=== PATIENT | female | born 1945 | race African-American/Black ===

== ENCOUNTER 2019-11-30 07:55 | Day surgery (SDC) | payer OTHER ==
--- NOTE | 2019-11-29 13:43 | Pre-Procedure Note/Attestation ---
Pre-Procedure Note/Attestation Complete Prior to Procedure Planned Procedure: right Procedure Narrative: right knee scope, medial and lateral meniscectomy and chondroplasty Indications for Procedure Pre-Operative Diagnosis: rt knee medial and lateral meniscus tears Attestation I attest that I discussed the nature of the procedure; its benefits; risks and complications; and alternatives (and the risks and benefits of such alternatives ), prior to the procedure, with the patient (or the patient's legal lifeline representatives). I attest that, if there was a reasonable possibility of needing a blood transfusion, the patient (or the patient's legal lifeline representatives) was given the [facility] standardized written summary, pursuant to the [place] Blood Safety Act ([place] Health and Safety Code # 1645, as amended). I attest that I re-evaluated the patient just prior to the surgery and that there has been no change in the patient's H&P, except as documented below: NONE Willi Monterroso MD Nov 29, 2019 13:43
[2019-11-30] VITALS (11 sets, daily range): BP systolic 119–141; BP diastolic 68–84
[~2019-11-30] VITALS: Ht 160 cm; Wt 86.2 kg
[~2019-11-30 07:55] MED LIST: D5 1/2NS 1,000 ML IV SCH; DIOVAN80 MG ORAL; FELODIPINE ER5 MG PO; HYDROcodone/Acetamin 5/325 tab ORAL PRN; HYDROmorphone 1mg/ml Carpuject SUBQ PRN; PRAVASTATIN SOD20 M1 ORAL; Tylenol #3 tab (300mg/30mg) ORAL PRN; ceFAZolin 1gm IVPB IVPB ONE; celeBREX 200mg Cap **SURGERY PATIENTS ONLY ORAL ONE; oxyCONTIN 10mg tab ORAL ONE
[2019-11-30] MEDS ORDERED: oxyCONTIN 10mg tab ORAL ONE (08:24)
[2019-11-30] MEDS ORDERED: celeBREX 200mg Cap **SURGERY PATIENTS ONLY ORAL ONE (08:24)
[2019-11-30] MEDS ORDERED: Ropivacaine 5mg/ml Vial 20ml INJ ONE (08:25)
[2019-11-30] MEDS ORDERED: LR 1000ml 1,000 ML IVLG SCH (08:38)
--- NOTE | 2019-11-30 08:38 | Anethesia Preoperative Eval ---
Anesthesia Pre-op PMH/ROS General Date of Evaluation: Nov 30, 2019 Anesthesiologist: Jean ASA Score: ASA 2 Mallampati Score Class I : Soft palate, uvula, fauces, pillars visible Class II: Soft palate, uvula, fauces visible Class III: Soft palate, base of uvula visible Class IV: Only hard plate visible Mallampati Classification: Class II Surgeon: Loc Diagnosis: Right knee OA Surgical Procedure: Right knee arthroscopy Anesthesia History: none Family History: no anesthesia problems Allergies: Coded Allergies: No Known Allergies (Unverified , 11/29/19) Medications: see eMAR Patient NPO?: Yes NPO Date: Nov 30, 2019 NPO Time: 00:00 Past Medical History Cardiovascular: Reports: HTN, other - HLD; Denies: CAD, [place], valve dz, arrhythmia Pulmonary: Denies: asthma, COPD, MELLY, other Gastrointestinal/Genitourinary: Denies: GERD, CRI, ESRD, other Neurologic/Psychiatric: Denies: dementia, CVA, depression/anxiety, TIA, other Endocrine: Denies: DM, hypothyroidism, steroids, other HEENT: Denies: cataract (L), cataract (R), glaucoma, [place] (L), [place] (R), other Hematology/Immune: Denies: anemia, DVT, bleeding disorder, other Musculoskeletal/Integumentary: Reports: OA; Denies: RA, DJD, DDD, edema, other Other: obesity PSxH Narrative: Denies Anesthesia Pre-op Phys. Exam Physician Exam Last Vital Signs Date Time Temp Pulse Resp B/P (MAP) Pulse Ox O2 Delivery O2 Flow Rate FiO2 11/30/19 08:26 Room Air 11/30/19 08:16 96.8 83 18 121/84 98 Constitutional: NAD Cardiovascular: RRR Respiratory: CTA Airway Exam Mallampati Score: Class II MO: full ROM: full Anesthesia Pre-op A/P Labs see chart Studies Pre-op Studies: EKG - sr Risk Assessment & Plan Assessment: ASA II Plan: GA Status Change Before Surgery: No Pre-Antibiotics Drug: Ancef 1g Given Within 1 Hr of Incision: Yes Eloisa Pena MD Nov 30, 2019 08:38
[2019-11-30] MEDS ORDERED: Labetalol 5mg/ml 20ml vial IV PRN (08:45)
[2019-11-30] MEDS ORDERED: DiphenhydrAMINE 50mg/ml Inj IVP PRN (08:45)
[2019-11-30] MEDS ORDERED: LORazepam Inj 2mg/ml 1ml IV PRN (08:45)
[2019-11-30] MEDS ORDERED: Hydromorphone 0.5mg/0.5ml inj IVP PRN (08:45)
[2019-11-30] MEDS ORDERED: fentaNYL 100 mcg/2 mL IV PRN (08:45)
[2019-11-30] MEDS ORDERED: Ketorolac 30mg Inj IV PRN (08:45)
[2019-11-30] MEDS ORDERED: Lidocaine 1% MPF 10mg/ml 5ml ONE (08:51)
[2019-11-30] MEDS ORDERED: fentaNYL 100 mcg/2 mL IV ONE (08:51)
[2019-11-30] MEDS ORDERED: Midazolam 2mg/2ml Inj ONE (08:51)
[2019-11-30] MEDS ORDERED: NS Irrig 4000ml IRRIG ONE ×2 (09:00→09:29)
[2019-11-30] MEDS ORDERED: LR 1000ml ONE (09:00)
[2019-11-30] MEDS ORDERED: NS Irrig 2000ml IRRIG ONE ×2 (09:00→09:30)
--- NOTE | 2019-11-30 09:42 | Brief Operative Note ---
Immediate Post Operative Note Operative Note Chief Complaint: rt knee pain Pre-op Diagnosis: rt knee medial and lateral meniscus tears Procedure: rt knee scope, medial and lateral meniscectomy with chondroplasty Post-op Diagnosis: same as pre-op Findings: consistent w/pre-op dx studies Surgeon: md nichol Cokeman: christiano alas Anesthesiologist: md mariaa Anesthesia: general Specimen: none Complications: none Condition: stable Fluids: ns Estimated Blood Loss: minimal Drains: none Implant(s) used?: Willi Ayala MD Nov 30, 2019 09:42
--- NOTE | 2019-11-30 09:51 | Immediate Post-Op Evaluation ---
Immediate Post-Op Evalulation Immediate Post-Op Evalulation Procedure: Right knee arthroscopy Date of Evaluation: Nov 30, 2019 Time of Evaluation: 09:54 IV Fluids: 200 Blood Products: 0 Estimated Blood Loss: min Urinary Output: 0 Blood Pressure Systolic: 119 Blood Pressure Diastolic: 76 Pulse Rate: 80 Respiratory Rate: 16 O2 Sat by Pulse Oximetry: 97 Temperature (Fahrenheit): 97.2 Pain Score (1-10): 0 Nausea: No Vomiting: No Complications 0 Patient Status: awake, reacts, patent, none Hydration Status: adequate Drug: Ancef 2g Given Within 1 Hr of Incision: Yes Eloisa Pena MD Nov 30, 2019 09:51
--- NOTE | 2019-11-30 09:52 | 48 Hour Post Anesthesia Eval ---
Post Anesthesia Evaluation Procedure: Right knee arthroscopy Date of Evaluation: Nov 30, 2019 Airway: patent Nausea: No Vomiting: No Pain Intensity: 0 Hydration Status: adequate Cardiopulmonary Status: at basleine Mental Status/LOC: patient returned to baseline Post-Anesthesia Complications: 0 Follow-up care needed: ready to discharge Eloisa Pena MD Nov 30, 2019 09:52
--- NOTE | 2019-11-30 12:15 | Operative Note - Dictated ---
DATE OF OPERATION: 11/30/2019 PREOPERATIVE DIAGNOSES: 1. Right knee lateral meniscus tearing. 2. Right knee medial meniscus tearing. POSTOPERATIVE DIAGNOSES: 1. 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 2. Right knee complex degenerative tear of the posterior horn and body of the lateral meniscus with horizontal cleavage as well as a vertical variety with displaced fragment involving 35% lateral meniscus. 3. Right knee posterior horn and junction of posterior horn and body medial meniscus tearing with a vertical parrot-beak shaped tear. The vertical component extended to the meniscocapsular junction bisecting the posterior horn from the body and anterior horn of the medial meniscus. PROCEDURE: 1. Right knee arthroscopy and extensive intra-articular shaving. 2. Right knee patellofemoral chondroplasty. 3. Right knee partial lateral meniscectomy involving 35% posterior horn, body of the lateral meniscus. 4. Right knee partial medial meniscectomy involving 25% posterior horn, body of the medial meniscus. SURGEON: Willi Monterroso MD. FRONTEND ENGINEER: Pina Mooney PA-C. Industrial Manufacturing Technician was present during the actual operative portion of the case and was important and essential part of the operation. During the operation, the enrichment assistant held and operated the arthroscopic camera for visualization, assisted by manipulating the leg to help with visualization, and helped with essential parts of the repair process as necessary such as operating surgical instruments under surgeon supervision, suture management, and wound closures. ANESTHESIOLOGIST: Eloisa Pena MD. ANESTHESIA: General LMA anesthesia. TOURNIQUET TIME: 25 minutes. EBL: Minimal. COMPLICATIONS: None. SURGICAL INDICATION: The patient is a 73-year-old female, who sustained the above injury to her knee. The patient was treated non-operative initially, but this did not alleviate the patients symptoms. Therefore, after discussing all non-surgical and surgical options, and discussing all foreseeable risk and benefits of surgery, the patient opted for surgical treatment as described above. PATIENT POSITIONING: The patient was brought to the operating room table and placed supine. All pressure points were well padded. Time-out was performed and preop antibiotics were given. General anesthesia was induced and a well padded tourniquet was placed on the thigh. The lateral post was placed and positioned to allow for opening of the medial compartment of the knee without placing pressure over the fibular head. The patients entire leg was prepped and draped in the usual sterile fashion. Time out was performed and preoperative antibiotics were given and after exsanguinating the lower extremity, the tourniquet was inflated to 275 mm of mercury. EXAMINATION OF THE KNEE UNDER ANESTHESIA: Before prepping and draping the knee and while the patient was relaxed under general anesthesia, the knee was examined for ROM, and anterior and posterior, medial and lateral, posterolateral, and posteromedial instability. Pivot shift testing was performed. There was no evidence of loss of motion or instability and the pivot shift testing was negative. PORTAL PLACEMENT: The lateral portal was placed with the knee flexed to 90 degrees at the level of inferior border of the patella in line with the lateral border of the patella. A cm skin incision was made with an eleven blade, and using a blunt obturator, the capsule was gently penetrated. Sterile saline solution was then infused inside the knee with the aid of a pump set at 35 mm mercury pressure. Under direct visualization, placement of the medial portal was preliminary judged using a spinal needle, and it was subsequently established using the same technique as the lateral portal. Care was given not to injure the cutaneous branches of the medial saphenous nerve or the subcutaneous veins. DIAGNOSTIC ARTHROSCOPY: The suprapatellar patellar pouch was visualized. There was no evidence of scar tissue or loose fragments. The medial and lateral patellar facets and trochlear groove articular cartilage was visualized. There was evidence of grade 3 chondral damage of the medial and lateral patellar facet. There were some unstable chondral flaps in the trochlea. However, there was area 1.5x1 cm central grade 4 chondromalacia, which was round. The medial plica shelf and the corresponding medial femoral condyle articular cartilage were visualized. There was no significantly thickening of the medial plica shelf and there were no kissing? lesion over the medial femoral condyle. The lateral gutter and the posterolateral corner of the knee were visualized. There were no loose bodies, and the popliteus tendon and other structures of the posterolateral corner of the knee were intact intra-articularly. At this point, the knee was placed in the figure of four position and the lateral compartment was entered. The lateral femoral condyle, lateral tibial plateau, and the anterior, body, and the posterior horn of the lateral meniscus were visualized and probed. The articular surfaces were intact and devoid of articular cartilage damage. There was a complex tear of the posterior horn, body lateral meniscus involving a horizontal cleavage tear as well as a vertical tear. There were displaced fragments of the body and posterior horn of the lateral meniscus. This involved 30% to 35% posterior horn and body of lateral meniscus. The knee was then placed at 90 degree and the ACL and PCL were visualized and probed. The ACL was completely intact on visualization and probing, and it had excellent tension. The PCL was completely intact on visualization and probing and it had excellent tension. The medial compartment was then entered and the medial femoral condyle, medial tibial plateau, and the anterior, body, and the posterior horn of the medial meniscus were visualized and probed. The articular surfaces were intact and devoid of articular cartilage damage. There was a vertical parrot-beak tear of the posterior horn and junction of posterior horn, body of the medial meniscus. The vertical tear extended to the meniscocapsular junction and bisected the posterior horn from the body of the medial meniscus. There was a displaced and unstable fragment to that. The medial gutter was visualized. There was no evidence of defect or loose fragments. The scope was then brought back to the patella femoral compartment. OPERATIVE ARTHROSCOPY: At this point, all loose debris and fragments were removed with the use of suction motorized shaver. Specific attention was given to assure all visible loose fragments were irrigated out of the knee joint with pump inflow and cannula outflow system. The frayed articular cartilage of the undersurface of the patella and the trochlear groove were debrided using a motorized shaver. Suction was used to pull in the loose fragments and flaps of the cartilage and to minimize damage to the intact and well attached portion of the cartilage. This allowed for a smooth surface for the articular cartilage gliding. At this point, attention was given to the lateral meniscus. Using combination of baskets and navya, the torn portion of the lateral meniscus was removed. Attention was given to remove all displaced and unstable portion of the lateral meniscus while maintaining as much of the functional portion of the meniscus as possible. Approximately, 30% to 35% of the posterior horn and body of the meniscus was removed in this fashion. The transition between the meniscectomy portion and intact portion of the meniscus was smoothed out with combination of small baskets and navya. Excellent transition zone was obtained in this fashion. At this point, attention was given to the medial meniscus. Using combination of baskets and navya, the torn portion of the medial meniscus was removed. Attention was given to remove all displaced and unstable portion of the medial meniscus while maintaining as much of the functional portion of the meniscus as possible. Approximately, 25% of the posterior horn and body of the medial meniscus was removed in this fashion. The transition between the meniscectomy portion and intact portion of the meniscus was smoothed out with combination of small baskets and navya. Excellent transition zone was obtained in this fashion. CONDITION AT DISCHARGE FROM OPERATING ROOM: The knee was irrigated with copious amount of normal saline at the end of the procedure. The scope was removed and the water was drained. The skin edges were re-approximated and sterile dressing was applied. All lap count and instrument counts were correct. The patient tolerated the procedure well without complications and was taken to the recovery room in stable conditions. Willi Monterroso M.D. DR: FLACO JOB#: [id number] CC: [id number]
== END 2019-11-30 12:00 | disposition home or self-care (01) ==
LOC: SUR 07:55
DX: S83.271A Complex tear of lateral meniscus, current injury, right knee, initial encounter (principal); S83.241A Other tear of medial meniscus, current injury, right knee, initial encounter; X58.XXXA Exposure to other specified factors, initial encounter; Y92.9 Unspecified place or not applicable; M22.41 Chondromalacia patellae, right knee; I10 Essential (primary) hypertension; E78.5 Hyperlipidemia, unspecified; M19.90 Unspecified osteoarthritis, unspecified site; E66.9 Obesity, unspecified; Z68.33 Body mass index [BMI] 33.0-33.9, adult
CPT/HCPCS: 29880; 94003; J0690; J1100; J2250; J2405; J2704; J2795; J3010; J7120; U0002; 94150